=== PATIENT | female | born 1975 | race Caucasian/White ===

== ENCOUNTER 2017-04-20 09:37 | Emergency (ER) | payer BC ==
[2017-04-20 09:55] VITALS: BP 134/75
--- NOTE | 2017-04-20 10:20 | UC ---
Throat Pain/Nasal Juan HPI - HPI Summary HPI Summary: 41 y/o female presents to the urgent care c/o sore throat with difficulty swallowing for the past week. Today, her symptoms are getting worse with mild fever, body aches and hoarseness. Pt denies nasal congestion, cough, SOB, N/V/ D. 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 - History of Current Complaint Chief Complaint: UCGeneralIllness Stated Complaint: SORE THROAT AND FEVER Time Seen by Provider: 04/20/17 10:03 Hx Obtained From: Patient ?: No Onset/Duration: Gradual Onset, Lasting Days, Still Present Severity: Moderate Pain Intensity: 4 Pain Scale Used: 0-10 Numeric Cough: None Associated Signs & Symptoms: Positive: Dysphagia, Hoarseness, Fever - mild. Negative: Sinus Discomfort, Nasal Discharge, Vomiting, Rash Related History: Seasonal Allergies - Epiglottits Risk Factors Epiglottis Risk Factors: Negative - Allergies/Home Medications Allergies/Adverse Reactions: Allergies Allergy/AdvReac Type Severity Reaction Status Date / Time Sulfa Antibiotics Allergy Hives Verified 04/20/17 10:01 Home Medications: Home Medications Citalopram TAB* [Celexa TAB*] 1 tab PO DAILY 04/20/17 [History Confirmed ] Fluticasone-Salmeterol 500-50* [Advair Diskus 500-50*] BID 04/20/17 [History] Montelukast Sodium TAB* [Singulair 5 mg TAB*] 1 tab PO DAILY 04/20/17 [History Confirmed 04/20/17] buPROPion TAB* [Wellbutrin TAB*] 1 tab PO DAILY 04/20/17 [History Confirmed 12/06] metFORMIN* [Glucophage 500 MG TAB *] 500 mg PO BID 04/20/17 [History Confirmed 04/20/17] PMH/Surg Hx/FS Hx/Imm Hx Previously Healthy: Yes Endocrine History: Diabetes Respiratory History: Asthma Psychological History: Anxiety - Surgical History Surgical History: Yes Surgery Procedure, Year, and Place: EAR TUBES, APPI, TONSILS, C-SECT., HYSTERECTOMY - Family History Known Family History: Positive: Hypertension, Diabetes - Social History Occupation: Employed Full-time Alcohol Use: Rare Substance Use Type: None Smoking Status (MU): Former Smoker - Immunization History Most Recent Influenza Vaccination: never Review of Systems Constitutional: Fever - mild at home Eyes: Negative ENT: Sore Throat - with difficulty swallowing Respiratory: Negative Cardiovascular: Negative Gastrointestinal: Negative Genitourinary: Negative Motor: Negative Neurovascular: Negative Musculoskeletal: Negative Neurological: Negative Psychological: Negative All Other Systems Reviewed And Are Negative: Yes Physical Exam Triage Information Reviewed: Yes Vital Signs: Initial Vital Signs Temp 98.8 F 04/20/17 09:54 Pulse 78 04/20/17 09:54 Resp 18 04/20/17 09:54 BP 134/75 04/20/17 09:54 Pulse Ox 100 04/20/17 09:54 - Additional Comments Vital signs reviewed Physical exam: General: Well developed, well-nourished patient with NAD. Head and face: Normocephalic and atraumatic Eyes: PERRLA, EOMI x 2. Normal conjunctiva. No eye discharge. ENT: Ears and TM with normal limits.Bilateral turbinate swollen with erythema, no nasal discharge. Pharynx with erythema, bilateral tonsil with erythema and mild exudate. mild anterior cervical lymphadenoapathy Neck: Supple, no JVD, no carotid bruits and no lymphadenopathy. Lungs: clear, no rales, no rhonchi, no wheezes. CVS: RRR, S1 and S2 present no murmurs or gallops appreciated. Abdomen: soft nontender with positive bowel sounds. Extremities: no edema noted. Neuro: WNL. Throat Pain/Nasal Course/Dx - Course Course Of Treatment: Pharyngitis:ENT: Ears and TM with normal limits.Bilateral turbinate swollen with erythema, no nasal discharge. Pharynx with erythema, bilateral tonsil with erythema and mild exudate. mild anterior cervical lymphadenoapathy. Rapid strep ordered: result: - Differential Dx/Diagnosis Differential Diagnosis/HQI/PQRI: Laryngitis, Mononucleosis, Pharyngitis, Sinusitis, URI Provider Diagnoses: viral pharyngitis Discharge - Discharge Plan Condition: Stable Disposition: HOME Prescriptions: Ibuprofen TAB* [Motrin TAB* 600 MG] 600 mg PO Q6H PRN #20 tab PRN Reason: Pain Patient Education Materials: Pharyngitis (ED) Forms: *Work Release Referrals: Kevin Sargent MD [Primary Care Provider] - Additional Instructions: Please take medications as instructed and finish the full course of treatment to avoid recurrent infection. If you do not improve or if symptoms worsen you should either follow up with your PCP or return to the urgent care for further evaluation and treatment.
== END 2017-04-20 10:49 | disposition home or self-care (01) ==
LOC: UCEAST 09:37
DX: J02.8 Acute pharyngitis due to other specified organisms (principal); B97.89 Other viral agents as the cause of diseases classified elsewhere; R50.9 Fever, unspecified; E11.9 Type 2 diabetes mellitus without complications; Z79.84 Long term (current) use of oral hypoglycemic drugs; J45.909 Unspecified asthma, uncomplicated; F41.9 Anxiety disorder, unspecified
CPT/HCPCS: 87651; 99212; G0463

== ENCOUNTER 2019-02-18 13:56 | Emergency (ER) | payer BC ==
--- NOTE | 2019-02-18 14:43 | UC ---
Ear Complaint HPI - HPI Summary HPI Summary: 43 y/o female presents to the urgent care c/o left ear pain and fullness for the past 3 days. Pt report H xof ear infections w/ B/L tubes placement many years ago. Pt reports pain is throbbing specially when she touches her ear.. Pt had has a mild nasal congestion for the past week. She has been taking Tylenol PO to alleviate symptoms. pain now is 4/10. Yesterday she tried to removed all wax and she thinks she made it worse b/c Q-tip was w/ blood and pain increased. Pt denies fever, decrease hearing, tinnitus, PETERSEN, SOB, chest pain, abdominal pain , N/V/d. - History of Current Complaint Stated Complaint: EAR ISSUES Time Seen by Provider: 02/18/19 14:42 Hx Obtained From: Patient ?: No Onset/Duration: Gradual Onset, Lasting Days - 3 days, Still Present, Worse Since - yesterday Severity Initially: Mild Severity Currently: Moderate Pain Intensity: 4 Pain Scale Used: 0-10 Numeric Aggravating Factors: Other - touch ear Alleviating Factors: OTC Meds Associated Signs/Symptoms: Positive: URI Symptoms - Allergies/Home Medications Allergies/Adverse Reactions: Allergies Allergy/AdvReac Type Severity Reaction Status Date / Time Sulfa (Sulfonamide Allergy Hives Verified 02/18/19 14:48 Antibiotics) Home Medications: Home Medications Acetaminophen [Acetaminophen Extra Strength] 1,000 mg PO ONCE 02/18/19 [History Confirmed 02/18/19] Insulin GLARGINE(*) [Lantus(*)] 34 units SUBCUT Q24H 02/18/19 [History Confirmed 02/18/19] Nateglinide 60 mg PO TID 02/18/19 [History Confirmed 02/18/19] Venlafaxine ER (NF) [Effexor ER (NF)] 150 mg PO DAILY 02/18/19 [History Confirmed 02/18/19] PMH/Surg Hx/FS Hx/Imm Hx Previously Healthy: Yes Endocrine History: Diabetes Respiratory History: Asthma - Surgical History Surgical History: Yes Surgery Procedure, Year, and Place: EAR TUBES, APPI, TONSILS, C-SECT., HYSTERECTOMY - Family History Known Family History: Positive: Hypertension, Diabetes - Social History Occupation: Employed Full-time Lives: With Family Alcohol Use: Rare Substance Use Type: None Smoking Status (MU): Former Smoker - Immunization History Most Recent Influenza Vaccination: never Review of Systems All Other Systems Reviewed And Are Negative: Yes Constitutional: Positive: Negative Skin: Positive: Negative Eyes: Positive: Negative ENT: Positive: Ear Ache - left ear pain, Nasal Discharge - clear, Sinus Congestion Respiratory: Positive: Negative Cardiovascular: Positive: Negative Gastrointestinal: Positive: Negative Genitourinary: Positive: Negative Motor: Positive: Negative Neurovascular: Positive: Negative Musculoskeletal: Positive: Negative Neurological: Positive: Negative Psychological: Positive: Negative Is Patient Immunocompromised?: No Physical Exam - Summary Physical Exam Summary: Vital signs: reviewed General: well developed, well nourished female sitting in the examining table w/ o any apparent distress Skin: [place], warm and dry, no evidence of atopic dermatitis, psoriasis, seborrhea. HEENT: -Head: atraumatic, non tender; no scalp dermatitis. -Eyes: sclera and conjunctiva clear, PERRLA, EOMI -Ears: no pre- or postauricular lymphadenopathy or erythema; LF external ear canal with erythema and yellowish purulent discharge and abrasion w/ discrete blood around 10 o'clock, pinna tenderness on palpation, Rt TM WNL, LF external ear canal clear and LF TM WNL. TMs normal w/out bulging or retraction. Good light reflex. No fluid level, vesicles, or bullae. No perforation. -Nose/Face: erythematous and edematous nasal mucosa with clear rhinorrhea, no frontal or maxillary sinus tender to palpation. -Mouth/Throat: Mucous membrane moist, posterior pharynx clear, no erythema or exudates. Neck: supple, FROM, nontender, no lymphadenopathy, no meningismus. Chest: Clear to auscultation, normal breath sounds Abd: soft, Bowel sounds active, Nontender. Back: no spinal or CVAT Neuro: A&O x4, GCS 15, no focal neuro deficits, normal behavior for age. Triage Information Reviewed: Yes Ear Complaint Course/Dx - Course Course Of Treatment: 43 y/o female presents to the urgent care c/o left ear pain and fullness for the past 3 days. Pt report H xof ear infections w/ B/L tubes placement many years ago. Pt reports pain is throbbing specially when she touches her ear.. Pt had has a mild nasal congestion for the past week. She has been taking Tylenol PO to alleviate symptoms. pain now is 4/10. Yesterday she tried to removed all wax and she thinks she made it worse b/c Q-tip was w/ blood and pain increased. Pt denies fever, decrease hearing, tinnitus, PETERSEN, SOB, chest pain, abdominal pain , N/V/d. Hx obtained. Pt w/ left otitis externa on examination. Pt Rx Cortisporin otic drops. Advised to take ibuprofen PO OTC for pain. If symptoms do not improve or worsen to return to the urgent care or f/u with PCP for further management. Pt understood and agreed with D/C instructions. - Differential Dx/Diagnosis Differential Diagnosis/HQI/PQRI: Cerumen Impaction, Otitis Externa, Otitis Media , Perforated TM, URI Provider Diagnosis: Left otitis externa Discharge - Sign-Out/Discharge Documenting (check all that apply): Patient Departure - D/c home All imaging exams completed and their final reports reviewed: No Studies - Discharge Plan Condition: Stable Disposition: HOME Prescriptions: Neomyc/Polym/HC 1% OTIC SUSP* [Cortisporin Otic Susp 1%*] 4 drop LEFT EAR TID # 1 btl Patient Education Materials: Otitis Externa (ED) Referrals: Kevin Sargent MD [Primary Care Provider] - 3 Days Dontrell Jenkins MD [Medical Doctor] - If Needed Additional Instructions: 1-Please apply otic antibiotic on your LF ear as directed. 2-Take ibuprofen PO after meals for pain. 3-If symptoms do not improve or worsen please f/u with your PCP or ENT DR Jenkins for further evaluation and treatment. - Billing Disposition and Condition Condition: STABLE Disposition: Home
[2019-02-18 14:57] VITALS: BP 134/85
== END 2019-02-18 15:43 | disposition home or self-care (01) ==
LOC: UCEAST 13:56
DX: H60.92 Unspecified otitis externa, left ear (principal); Z88.2 Allergy status to sulfonamides
CPT/HCPCS: 99212; G0463